=== PATIENT | female | born 2000 | race Caucasian/White ===

== ENCOUNTER 2019-08-25 19:11 | Emergency (ER) | payer SELFPAY ==
[2019-08-25 19:43] VITALS: BP 128/81
--- NOTE | 2019-08-25 20:16 | EKG REPORT ---
SEVERITY:- OTHERWISE NORMAL ECG - SINUS ARRHYTHMIA, RATE 59-83 : Confirmed by: Mickey Soriano MD 25-Aug-2019 20:15:59
[2019-08-25] MEDS ORDERED: IBUPROFEN 800 MG TABLET PO ONE (20:33)
--- NOTE | 2019-08-25 20:35 | ER Document Report ---
ED Medical Screen (RME) - General Chief Complaint: Chest Tightness Stated Complaint: CHEST PAIN Time Seen by Provider: 08/25/19 20:28 Mode of Arrival: Ambulatory Information source: Patient Notes: Patient presents complaining of anterior chest pain that started early this morning when she woke up. Patient states that the pain and then returned in the afternoon. Patient states pain was to the left side of the chest and then radiated over to the right lateral side of her sternum. Patient denies any cough or cold symptoms. Patient denies any fever. Patient denies any history of early heart disease in the family member. Patient denies any previous history of DVT or PE. I have greeted and performed a rapid initial assessment of this patient. A comprehensive ED assessment and evaluation of the patient, analysis of test results and completion of the medical decision making process will be conducted by additional ED providers. - Related Data Home Medications: control Physical Exam - Vital signs Vitals: Temp Pulse Resp BP Pulse Ox 98.3 F 71 20 128/81 H 98 08/25/19 19:41 08/25/19 19:41 08/25/19 19:41 08/25/19 19:41 08/25/19 19:41 - Respiratory Respiratory status: No respiratory distress Chest status: Pain with deep breathing - Cardiovascular Rhythm: Regular Heart sounds: S1 appreciated, S2 appreciated Course - Vital Signs Vital signs: Temp Pulse Resp BP Pulse Ox 98.3 F 71 20 128/81 H 98 08/25/19 19:41 08/25/19 19:41 08/25/19 19:41 08/25/19 19:41 08/25/19 19:41
--- NOTE | 2019-08-25 21:18 | RADIOLOGY REPORT (SQ) ---
EXAM DESCRIPTION: X-RAY CHEST TWO VIEWS CLINICAL HISTORY: 18 years, Female, cp COMPARISON: None. FINDINGS: PA and lateral chest radiographs were performed at 2050 hours on 08/25/2019. The lungs are well expanded and clear. The costophrenic sulci are sharp. The cardiac silhouette, hilar regions, trachea, soft tissues and bony structures are unremarkable. IMPRESSION: No acute cardiopulmonary disease.
== END 2019-08-26 00:17 | disposition left against medical advice (07) ==
LOC: ER 19:11
DX: Z53.21 Procedure and treatment not carried out due to patient leaving prior to being seen by health care provider (principal); R07.9 Chest pain, unspecified
CPT/HCPCS: 71046; 93005; 93010; 99281